=== PATIENT | female | born 1985 | race Caucasian/White ===

== ENCOUNTER 2018-02-18 14:43 | Emergency (ER) | payer SELFPAY, OTHER ==
[2018-02-18] MEDS: ONDANSETRON (ODT) 4 MG TAB ODT (15:35)
[2018-02-18] MEDS: ACETAMINOPHEN 325 MG TAB PO ×2 (15:35→15:37)
[2018-02-18] MEDS: HYDROCODONE/APAP (10/325) TAB PO (15:40)
== END 2018-02-18 16:29 | disposition left against medical advice (07) ==
LOC: FTE 14:43
DX: S00.83XA Contusion of other part of head, initial encounter (principal); Y08.89XA Assault by other specified means, initial encounter
CPT/HCPCS: 99283